=== PATIENT | male | born 1960 | race Caucasian/White ===

== ENCOUNTER 2024-09-26 09:36 | Emergency (ER) | payer OTHER, SELFPAY ==
[2024-09-26 09:40] VITALS: BP 144/91
[2024-09-26 11:03] LABS: % Basophils 0.6 % (0-2); % Eosinophils 0.6 % (0-6); % Immature Granulocytes 0.4 % (0-0.5); % Lymphocytes 26.9 % (20.5-51.1); % Neutrophils 64.5 % (42.2-75.2); Absolute Basophils 0.1 10^3/uL (0-0.2); Absolute Eosinophils 0.1 10^3/uL (0-0.7); Absolute Lymphocytes 2.3 10^3/uL (1.2-3.4); Absolute Monocytes 0.6 10^3/uL (0.1-0.6); Absolute Neutrophils 5.5 10^3/uL (1.4-6.5); Hematocrit 49.3 % (39.0-52.0); Hemoglobin 16.8 g/dL (13.0-18.0); Mean Corp Hgb Conc. 34.1 g/dL (33.0-37.0); Mean Corpuscular Hgb 30.2 pg (27.0-31.0); Mean Corpuscular Volume 88.5 fL (80.0-94.0); Mean Platelet Volume 11.9 fL (7.4-10.4); Nucleated Red Blood Cells % 0 % (-); Platelet Count 177 10^3/uL (130-400); Red Blood Cell Count 5.57 10^6/uL (4.70-6.10); Red Cell Dist. Width 12.3 % (11.5-14.5); White Blood Cell Count 8.6 10^3/uL (4.8-10.8)
[2024-09-26 11:23] LABS: ALT (SGPT) 26 U/L (0-50); AST (SGOT) 22 U/L (17-59); Albumin 4.3 g/dl (3.5-5.0); Alkaline Phosphatase 59 U/L (38-126); Blood Urea Nitrogen 14 mg/dl (9-20); Calcium 9.1 mg/dl (8.4-10.2); Carbon Dioxide 25 mmol/L (22-30); Chloride 102 mmol/L (98-107); Glucose 137 mg/dl (70-99); Sodium 138 mmol/L (135-145); Total Bilirubin 0.6 mg/dl (0.2-1.3); eGFR > 60.00
[2024-09-26 11:35] LABS: Troponin I < 0.012 ng/ml
[2024-09-26 12:16] VITALS: BP 134/90
[2024-09-26 12:48] LABS: D-Dimer < 0.27 ug/mlFEU (0.00-0.50)
--- NOTE | 2024-09-26 13:05 | ED.GENMED ---
History of Present Illness
General
Chief Complaint: Chest Pain
Time Seen by Provider: 09/26/24 11:53
History of Present Illness
History of Present Illness:
63-year-old male presents the emergency department for evaluation of intermittent right-sided chest pain has been going on for 3 to 4 days. Pain seems to improve with exertion, denies any pleuritic pain or radiating pain. No fevers or chills. No
recent international travel or prolonged immobilization. No calf pain or leg swelling. No history of cardiovascular disease.
Past History
Past History
ED Past Medical History: None
Social History
Tobacco: Non-smoker
Drug: None
Personal:
Living: with family
Employment: Employed
Family History
Family History: Other (No family history of cerebral aneurysm)
Review of Systems
Review of Systems
Allergies reviewed?: Yes
All Other Systems: ROS reviewed and negative except as documented in HPI and ROS
Phy Exam
Physical Exam
Physical Exam:
GEN: Well appearing, NAD, WDWN
HEENT: Oral mucosa moist, no scleral icterus
Cardiac: Regular rate and rhythm, no murmurs
Lung: No respiratory distress, no tachypnea, lungs clear to auscultation bilaterally
MSK: No gross deformity or injuries
Skin: Good color, no pallor or jaundice, no rashes
Neuro: AO x3, moves all extremities freely
Psych: Calm, cooperative
Scores
Heart Score for Chest Pain Patients
STEMI patient?: No
History: Slightly or Non-Suspicious
ECG: Normal
Age: >45 - <65 years
Risk Factors: 1 or 2 Risk Factors
Troponin: </= Normal Limit
Heart Score for Chest Pain Patients: 2
Heart Score Risk: 2.5% MACE over next 6 weeks
Course
Orders/Labs/Results
Orders:
Orders
09/26/24 09:36
ECG [Electrocardiogram (*1)] Urgent
Reason for Study: Chest Pain
EKG- Treatment ONCE
09/26/24 09:53
Complete Blood Count/With Diff Urgent
Comprehensive Metabolic Panel Urgent
Troponin I Urgent
09/26/24 12:18
D-Dimer Urgent
09/26/24 12:50
CR Chest - 2 Views Urgent
Comment:
Reason For Exam: chest pain
Abnormal Lab Results
09/26/24
09:53
MPV 11.9 H fL
(7.4-10.4)
Glucose 137 H mg/dl
(70-99)
09/26/24 09:53
09/26/24 09:53
Vital Signs
Initial and Last Documented VS:
Initial Vital Signs
Temp Pulse Resp BP Pulse Ox
97.8 F 108 20 144/91 98
09/26/24 09:40 09/26/24 09:40 09/26/24 09:40 09/26/24 09:40 09/26/24 09:40
Last Documented Vital Signs
Temp Pulse Resp BP Pulse Ox
97.8 F 80 18 134/90 97
09/26/24 09:40 09/26/24 12:45 09/26/24 12:16 09/26/24 12:16 09/26/24 12:45
MDM/Problems Addressed
MDM/Problems Addressed:
63-year-old male presents with atypical chest pain. Workup is reassuring, vital signs improved. Although I do not suspect angina given that he is able to exert himself with improvement in symptoms, will refer to cardiology for follow-up evaluation
*Critical Care Note
Total Time (30-74mins, 75-104mins- exclusive of procedures): Not Applicable
ED Attending Note
-
Portions of this chart may have been created with voice recognition software.� Occasional wrong word or��sound alike� substitutions may have occurred due to the inherent limitations of voice recognition software.
Discharge Plan
Departure
Patient Disposition: Home (Routine Discharge)
Date of Disposition: 09/26/24
Time of Disposition: 13:05
Patient with high blood pressure during this ER visit?: Yes
Discharge Problem:
Atypical chest pain
Instructions: Chest Pain DCA Follow Up
Prescriptions:
No Action
elefmzwjbf-gptvamxjwnigl-seia 1 TAB tablet
2 tab PO Q6HPRN PRN (Reason: pain) Qty: 0 0RF
Referrals:
Luba Crum MD [Family Provider] -
Juan A Santana MD [Active] -
Activity Restrictions/Additional Instructions:
I do not have a high suspicion that this pain is cardiac, however given your age and high blood pressure, I would recommend you follow up with a locket maker
Interventions
Interventions:
*Risk Screen - Suicide Last Done: 09/26/24 09:40
*General Assessment Last Done: 09/26/24 09:40
*Neglect/Abuse Screening Last Done: 09/26/24 09:40
*Nursing Disposition Last Done: 09/26/24 13:25
ED- Cardiac Assessment Last Done: 09/26/24 12:22
Discharge Date and Time
Discharge Date/Time: 09/26/24 13:25
Print Language: MICRONES[place]
== END 2024-09-26 13:25 | disposition home or self-care (01) ==
LOC: EMR 09:36
PROVIDERS: Emergency Medicine; Physician Assistant; EMERGENCY PHYSICIAN Emergency Medicine; FAMILY PHYSICIAN Internal Medicine
DX: R07.89 Other chest pain (principal); R03.0 Elevated blood-pressure reading, without diagnosis of hypertension
CPT/HCPCS: 99283; 71046; 80053; 84484; 85025; 85379; 93005

== ENCOUNTER 2025-07-09 09:55 | Emergency (ER) | payer OTHER, SELFPAY ==
[2025-07-09] VITALS (7 sets, daily range): BP systolic 118–142; BP diastolic 78–97; BMI 28.1
--- NOTE | 2025-07-09 10:26 | ED.GENMED ---
History of Present Illness
General
Chief Complaint: Abdominal Pain
Source: patient
Exam Limitations: none
Time Seen by Provider: 07/09/25 10:09
History of Present Illness
History of Present Illness:
64yoM with a history of hypertension, hyperlipidemia, and GERD presenting with his for evaluation of abdominal pain. Patient reports the pain throughout his upper abdomen which has been ongoing for about 2 weeks. Pain is sometimes located in
the right upper quadrant and sometimes in the left upper quadrant. The pain is making it difficult for him to sleep over the past few days. He has taken Nexium without much relief. He is also experiencing nausea. He has been recent researching
his symptoms online and became worried so decided come to the ED for evaluation. He denies any fevers, chills, weight loss, chest pain, shortness of breath, vomiting, diarrhea, constipation, difficulty urinating. Only prior abdominal surgery was
an appendectomy many years ago.
Past History
Past History
ED Past Medical History: None
Social History
Tobacco: Non-smoker
Drug: None
Personal:
Living: with family
Employment: Employed
Family History
Family History: Other (No family history of cerebral aneurysm)
Phy Exam
General Physical Exam
General Presentation: well appearing and no apparent distress
General age: appears stated age
General Skin: warm and dry
General Habitus: normal
General Mental: alert
ENT Exam
ENT Exam: normocephalic
Cardiovascular Exam
Cardiovascular Exam: regular rate/rhythm and no murmur
Pulmonary Exam
Pulmonary Exam: lungs clear, no respiratory distress, no rales, no crackles, no rhonchi and no wheezing
Gastrointestinal Exam
Gastrointestinal Exam: soft, non distended and other (+Tenderness in epigastrium and periumbilical regions. Abdomen soft, non-distended. No rebound or guarding.)
Neurological Exam
Neurological Exam: alert
[place] Coma Scale
Eye Opening: Spontaneous
Verbal Response: Oriented
Motor Response: Obeys Commands
GCS Total Score: 15
Skin Exam
Skin Exam: normal color and warm/dry
Psychiatric Exam
Psychiatric Exam: normal mood/affect
Course
Orders/Labs/Results
Orders:
Orders
07/09/25 10:37
CT Abd/pelvis W Iv Cont Urgent
Comment:
Reason For Exam: upper abdominal pain
07/09/25 10:48
Complete Blood Count/With Diff Urgent
Comprehensive Metabolic Panel Urgent
Lipase Urgent
Abnormal Lab Results
07/09/25
10:48
MPV 12.5 H fL
(7.4-10.4)
07/09/25 10:48
07/09/25 10:48
Vital Signs
Initial and Last Documented VS:
Initial Vital Signs
Temp Pulse Resp BP Pulse Ox
97.4 F 88 16 142/97 99
07/09/25 10:00 07/09/25 10:00 07/09/25 10:00 07/09/25 10:00 07/09/25 10:00
Last Documented Vital Signs
Temp Pulse Resp BP Pulse Ox
97.4 F 74 16 122/80 97
07/09/25 10:00 07/09/25 14:00 07/09/25 10:00 07/09/25 14:00 07/09/25 14:00
MDM/Problems Addressed
Differential Diagnosis Includes:
64yoM here with upper abd pain x 2 weeks. Associated with nausea. Making it difficult for him to sleep at night. VSS. Patient well appearing in no distress. No signs of peritonitis on abdominal exam. Differential diagnosis includes but is not
limited to: pancreatitis, biliary colic, cholecystitis, hepatitis, malignancy, PUD
Initial ED plan: Check abdominal labs and CT abdomen.
*Pulse Oximetry
SaO2: 99
Oxygen Mode of Delivery: Room air
Patient hypoxic: no
*Critical Care Note
Total Time (30-74mins, 75-104mins- exclusive of procedures): Not Applicable
Update Note
Update Note:
Labs unremarkable including normal white count, lipase, LFTs, renal function. CT is negative for acute findings. Findings discussed with patient and . He is now feeling much better and admits that his main concern was malignancy as his
father from pancreatic cancer at his age. Unclear etiology of symptoms. ?PUD although he denies any heartburn or postprandial pain. He was advised to f/u with his PCP and GI. ED return precautions reviewed and he was discharged in
stable condition.
ED Attending Note
-
Portions of this chart may have been created with voice recognition software.� Occasional wrong word or��sound alike� substitutions may have occurred due to the inherent limitations of voice recognition software.
Discharge Plan
Departure
Patient Disposition: Home (Routine Discharge)
Date of Disposition: 07/09/25
Time of Disposition: 14:48
Patient with high blood pressure during this ER visit?: No
Discharge Problem:
Acute upper abdominal pain
Instructions: Abdominal Pain
Prescriptions:
New
famotidine 20 mg tablet
20 mg PO BID PRN (Reason: acid reflux) Qty: 30 0RF
No Action
skwulndgoj-xjzhpclwgjbyr-wnko 1 TAB tablet
2 tab PO Q6HPRN PRN (Reason: pain) Qty: 0 0RF
Referrals:
Lbua Crum MD [Family Provider, Internal Medicine]
Pola Tao MD [Active, Gastroenterology]
Activity Restrictions/Additional Instructions:
Continue taking Nexium. Take famotidine as needed.
Please call today to schedule a follow-up appointment with your family doctor and gastroenterology. Return to the ER with any new or worsening symptoms.
Interventions
Interventions:
*Risk Screen - Suicide Last Done: 07/09/25 10:03
*General Assessment Last Done: 07/09/25 10:03
*Neglect/Abuse Screening Last Done: 07/09/25 10:03
*ED COVID-19 Vaccine History Last Done: 07/09/25 11:00
*ED Influenza Vaccine History Last Done: 07/09/25 11:00
[facility] Fall Risk Assessment Tool Last Done: 07/09/25 11:00
*Nursing Disposition Last Done: 07/09/25 14:59
AS-Jdltsr-Bdmsmygcbt Assessment Last Done: 07/09/25 11:00
Discharge Date and Time
Discharge Date/Time: 07/09/25 15:00
Print Language: [place]
[2025-07-09 11:19] LABS: Hematocrit 50.7 % (39.0-52.0); Hemoglobin 17.3 g/dL (13.0-18.0); Mean Corp Hgb Conc. 34.1 g/dL (33.0-37.0); Mean Corpuscular Volume 86.8 fL (80.0-94.0); Nucleated Red Blood Cells % 0 % (-); Platelet Count 158 10^3/uL (130-400); Red Cell Dist. Width 12.2 % (11.5-14.5)
[2025-07-09 11:52] LABS: ALT (SGPT) 26 U/L (0-50); AST (SGOT) 21 U/L (17-59); Albumin 4.7 g/dl (3.5-5.0); Alkaline Phosphatase 61 U/L (38-126); Blood Urea Nitrogen 16 mg/dl (9-20); Calcium 9.4 mg/dl (8.4-10.2); Carbon Dioxide 27 mmol/L (22-30); Chloride 102 mmol/L (98-107); Estimated Creatinine Clearance 74 ml/min; Glucose 96 mg/dl (70-99); Lipase 136 U/L (23-300); Potassium 4.5 mmol/L (3.5-5.1); Sodium 138 mmol/L (135-145); Total Protein 7.6 g/dl (6.3-8.2); eGFR > 60.00
== END 2025-07-09 15:00 | disposition home or self-care (01) ==
LOC: EMR 09:55
PROVIDERS: Physician Assistant; EMERGENCY PHYSICIAN Student in an Organized Health Care Education/Training Program; FAMILY PHYSICIAN Internal Medicine
DX: R10.10 Upper abdominal pain, unspecified (principal); I10 Essential (primary) hypertension; E78.5 Hyperlipidemia, unspecified; K21.9 Gastro-esophageal reflux disease without esophagitis
CPT/HCPCS: 99284; 74177; 80053; 83690; 85025; Q9967